=== PATIENT | female | born 1995 | race Caucasian/White ===

== ENCOUNTER 2018-03-25 11:40 | Emergency (ER) | payer OTHER ==
[~2018-03-25] VITALS: Ht 154.9 cm; Wt 52.2 kg
--- NOTE | 2018-03-25 11:45 | NUR ---
PRESENTS TO ER C/O SOB FOR ABOUT A YEAR BUT MUCH WORSE THIS AM. A/OX 4. BREATHING EVEN AND UNLABORED. NO SOB, NAD, VITALS STABLE. SAFETY AND COMFORT MEASURES IN PLACE. AWAITING MD ORDERS.
--- NOTE | 2018-03-25 12:21 | NUR ---
MEDICAL CODING AUDITOR AT BEDSIDE.
[2018-03-25 13:35] VITALS: BP 116/62
--- NOTE | 2018-03-25 13:36 | NUR ---
Patient discharged to home in stable condition. Written and verbal after care instructions given. Patient verbalizes understanding of instruction.
== END 2018-03-25 13:36 | disposition home or self-care (01) ==
LOC: ER 11:42
DX: F41.9 Anxiety disorder, unspecified (principal); R06.02 Shortness of breath; F17.200 Nicotine dependence, unspecified, uncomplicated
CPT/HCPCS: 71045; 93005; 99284; 99406; A4606; Z7610